=== PATIENT | female | born 1940 | race Caucasian/White ===

== ENCOUNTER 2017-10-01 11:10 | Outpatient (CLI) | payer MEDICARE | END 2017-10-01 11:11 | disposition home or self-care (01) | LOC: BICMAMMO 11:10 | PROVIDERS: ATTEND Family Medicine | DX: Z12.31 Encounter for screening mammogram for malignant neoplasm of breast; Z85.3 Personal history of malignant neoplasm of breast | CPT/HCPCS: 77063; 77067 ==

== ENCOUNTER 2018-10-13 11:04 | Outpatient (CLI) | payer MEDICARE, BC ==
--- NOTE | 2018-10-13 11:37 | MMO ---
Bilateral MAMMO Bilat Screen [facility]. CLINICAL HISTORY: Patient is 78 years old and is seen for screening. The patient has a history of left Mastectomy in 1988 - malignant. VIEWS: The views performed were: . FILMS COMPARED: The present examination has been compared to prior imaging studies performed at [facility] on 10/01/2017, and at [facility] on 05/30/2013, 06/09/2014, 06/14/2015 and 07/17/2016. MAMMOGRAM FINDINGS: The breast is heterogeneously dense, which could obscure a lesion on mammography. There are stable benign appearing calcifications seen in the right breast. There are no suspicious masses, suspicious calcifications, or new areas of architectural distortion. IMPRESSION: THERE IS NO MAMMOGRAPHIC EVIDENCE OF MALIGNANCY. A ROUTINE FOLLOW-UP MAMMOGRAM IN 1 YEAR IS RECOMMENDED. THE RESULTS OF THIS EXAM WERE SENT TO THE PATIENT. ACR BI-RADS Category 2 - Benign finding MAMMOGRAPHY NOTE: 1. A negative mammogram report should not delay a biopsy if a dominant of clinically suspicious mass is present. 2. Approximately 10% to 15% of breast cancers are not detected by mammography. 3. Adenosis and dense breasts may obscure an underlying neoplasm.
== END 2018-10-13 11:05 | disposition home or self-care (01) ==
LOC: BICMAMMO 11:04
PROVIDERS: ATTEND Family Medicine
DX: Z12.31 Encounter for screening mammogram for malignant neoplasm of breast (principal)
CPT/HCPCS: 77063; 77067

== ENCOUNTER 2019-08-18 17:33 | Inpatient (IN) | payer MEDICARE, BC ==
[2019-08-18 18:28] LABS: #Basophils 0.1 thou/uL (0.0-0.2); #Eosinphils 0.4 thou/uL (0.0-0.7); #Lymphocytes 3.1 thou/uL (1.20-3.40); #Monocytes 1.3 thou/uL (0.11-0.59); #Neutrophils 9.6 thou/uL (1.40-6.50); %Basophils 0.5 % (0.0-1.0); %Eosinophils 2.5 % (0.0-10.0); %Lymphocytes 21.2 % (21.0-51.0); %Neutrophils 66.8 % (42.0-75.0); Hemoglobin 11.2 g/dL (12.0-16.0); Mean Corpuscular HGB CONC 34.3 g/dL (32.0-36.0); Mean Corpuscular Hemoglobin 32.8 pg (27.0-31.0); Mean Corpuscular Volume 95.6 fL (78.0-98.0); Mean Platelet Volume 7.9 fL (7.4-10.4); Platelet Count 391 thou/uL (130-400); RBC Distribution Width 11.5 % (11.5-14.5); Red Blood Cell (RBC) Count 3.41 mill/uL (4.20-5.40); White Blood Cell (WBC) Count 14.4 thou/uL (4.8-10.8)
[2019-08-18 18:36] LABS: INR-International Normal Ratio 1.2; PTT 32.2 SEC (22.9-36.1); Prothrombin Time 14.9 SEC (12.0-14.7)
[2019-08-18] MEDS ORDERED: Diltiazem 125 MG/25 ML ONE (18:48)
[2019-08-18 18:53] LABS: ALT (SGPT) 41 U/L (8-55); AST (SGOT) 24 U/L (5-34); Albumin 4.2 g/dL (3.4-4.8); Alkaline Phosphatase 82 U/L (40-110); Anion Gap 13 mmol/L (10-20); BUN (Urea Nitrogen) 33 mg/dL (9.8-20.1); Bilirubin, Total 0.4 mg/dL (0.2-1.2); Calc. Creatinine Clearance 0 mL/min (70-130); Calcium 9.9 mg/dL (7.8-10.44); Carbon Dioxide 27 mmol/L (23-31); Chloride 102 mmol/L (98-107); Estimated GFR-MDRD 34; Glucose 103 mg/dL (83-110); Potassium 4.9 mmol/L (3.5-5.1); Protein, Total 7.2 g/dL (6.0-8.3); Sodium 137 mmol/L (136-145)
[2019-08-18 19:16] LABS: CKMB 1.7 ng/mL (0-6.6)
--- NOTE | 2019-08-18 19:34 | RAD ---
CHEST ONE VIEW: 08/18/19 HISTORY: Chest pain. COMPARISON: 09/22/16 study. Heart size is within normal limits for portable technique. Postop sternotomy changes are seen. Patien t's hand overlies the chest. No infiltrative process of signs of failure. Bones are demineralized. IMPRESSION: No active intrathoracic disease. POS: ROSENDO
[2019-08-18] MEDS ORDERED: Senokot S 8.6-50 MG TAB PO PRN (20:53)
[2019-08-18] MEDS ORDERED: Ondansetron PF 4 MG/2 ML Vial IVP PRN (20:53)
[2019-08-18] MEDS ORDERED: Sodium Chloride 0.9% 1,000 ML IV SCH (21:00)
--- NOTE | 2019-08-18 21:02 | PDOC.HHP ---
Hospitalist HPI - History of Present Illness Tachycardia History of Present Illness: 79 yo female who is a resident of an Assisted living facility was transferred to ER after she was found to have tachycardia. She has a history of CAD s/p CABG in 2017, HTN, A.Fib. She reports some discomfort in her left upper extremity. No CP, palpitations, cough, wheezing, SOB, PND or orthopnea. No fever , chills, N/V/D/C. No abdominal pain, burning or pain with urination. No headache, rash, bruising, leg swelling or recent travel history. ED Course: Found to have A.Flutter/Fib and given IV cardizem with rate reduction to 70s but HR went back up to 140s. Given IV fluids and given IV digoxin x 1. 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 Heme/Onc: reports: Cancer (Breast) Endocrine: reports: Hypothyroidism - Past Surgical History Past Surgical History: reports: CABG, Mastectomy - Family History Family History: reports: no pertinent history (reviewed) - Social History Smoking Status: Former smoker Tobacco Type: cigarettes Alcohol: reports: None Drugs: reports: none Living Situation: Other (Assisted Living Facility) Activity level: wheelchair bound - Exam General Appearance: NAD, awake alert Eye: PERRL, anicteric sclera ENT: normocephalic atraumatic, no oropharyngeal lesions, dry oral mucosa Neck: supple, symmetric, no JVD, no thyromegaly, no lymphadenopathy Heart: no murmur, no gallops, no rubs, normal peripheral pulses Heart - other findings: tachycardia present Respiratory: CTAB, no wheezes, no rales, no ronchi, normal chest expansion, no tachypnea, normal percussion Gastrointestinal: soft, non-tender, non-distended, normal bowel sounds, no palpable masses Extremities: no cyanosis, no clubbing, no edema Skin: normal turgor, no lesions, no rashes Neurological: cranial nerve grossly intact, normal sensation to touch, hemiplegia (Left UE contracture and weakness; LLE weakness). negative: speech deficit Musculoskeletal: normal strength (Right UE & LE 5/5), no muscle wasting (left UE & LE) Musculoskeletal - other findings: Intact strength left shoulder and hip only; Other joints with contractrues Psychiatric: normal affect, normal behavior, A&O x 3 Hospitalist Results - Labs Result Diagrams: 08/18/19 18:20 08/18/19 18:20 Lab results: WBC 14.4 thou/uL (4.8-10.8) H 08/18/19 18:20 Hgb 11.2 g/dL (12.0-16.0) L 08/18/19 18:20 Hct 32.6 % (36.0-47.0) L 08/18/19 18:20 MCV 95.6 fL (78.0-98.0) 08/18/19 18:20 Plt Count 391 thou/uL (130-400) 08/18/19 18:20 Neutrophils % 66.8 % (42.0-75.0) 08/18/19 18:20 Sodium 137 mmol/L (136-145) 08/18/19 18:20 Potassium 4.9 mmol/L (3.5-5.1) 08/18/19 18:20 Chloride 102 mmol/L (98-107) 08/18/19 18:20 Carbon Dioxide 27 mmol/L (23-31) 08/18/19 18:20 BUN 33 mg/dL (9.8-20.1) H 08/18/19 18:20 Creatinine 1.48 mg/dL (0.6-1.1) H 08/18/19 18:20 Glucose 103 mg/dL (83-110) 08/18/19 18:20 Calcium 9.9 mg/dL (7.8-10.44) 08/18/19 18:20 Total Bilirubin 0.4 mg/dL (0.2-1.2) 08/18/19 18:20 AST 24 U/L (5-34) 08/18/19 18:20 ALT 41 U/L (8-55) 08/18/19 18:20 Alkaline Phosphatase 82 U/L (40-110) 08/18/19 18:20 CK-MB (CK-2) 1.7 ng/mL (0-6.6) 08/18/19 18:20 Troponin I 0.038 ng/mL (< 0.028) H 08/18/19 18:20 B-Natriuretic Peptide 277.4 pg/mL (0-100) H 08/18/19 18:20 Serum Total Protein 7.2 g/dL (6.0-8.3) 08/18/19 18:20 Albumin 4.2 g/dL (3.4-4.8) 08/18/19 18:20 - EKG Interpretation EKG: Personally reviewed - A.Fib/Flutter with non-specific T-wave changes - Radiology Interpretation Chest x-ray Status: image reviewed by me (No consolidation or CP angle blunting; midline sternotomy wires) Hospitalist H&P A/P - Problem (1) Atrial fibrillation Code(s): I48.91 - UNSPECIFIED ATRIAL FIBRILLATION Status: Acute Qualifiers: Atrial fibrillation type: unspecified chronic Qualified Code(s): I48.20 - Chronic atrial fibrillation, unspecified; I48.2 - Chronic atrial fibrillation Assessment and Plan: Patient is asymptomatic and seems to have a history of Paroxysmal A.Fib Now in A.Fib/flutter with RVR Admit to telemetry to inpatient status Expected to stay at least 2 midnights High risk due to risk of lethal arrhythmias Borderline low BP and risk of hypotension with cardizem drip Pt given Digoxin IV 0.25 mg X 1 now Will repeat Digoxin 0.125 mg IV Q6H x 2 Resume coreg at increased dose of 6.25 PO BID Cardiology consult. Further management of AV blocking agents per cardiology ECHO ordered Patient on Eliquis at home. Resume the same. (2) Elevated troponin Code(s): R79.89 - OTHER SPECIFIED ABNORMAL FINDINGS OF BLOOD CHEMISTRY Status : Acute Assessment and Plan: Likely Demand Ischemia related to tachycardia and renal dysfunction Cycle cardiac enzymes Cardio consult and ECHO Continue statin, BB therapy ASA in addition to patient's eliquis therapy (3) MELE (acute kidney injury) Code(s): N17.9 - ACUTE KIDNEY FAILURE, UNSPECIFIED Status: Acute Assessment and Plan: MELE vs CKD Dehydrated on clinical exam IV fluids Will obtain renal US If concern for CKD, will consider nephrology consult Avoid nephrotoxic meds and hypotension Monitor urine output and renal function closely (4) CAD in [place] artery Code(s): I25.10 - ATHSCL HEART DISEASE OF [place] CORONARY ARTERY W/O ANG PCTRS Status: Chronic Assessment and Plan: Continue statin, BB Cardio consult s/p CABG in 2017 (5) Dyslipidemia Code(s): E78.5 - HYPERLIPIDEMIA, UNSPECIFIED Status: Chronic Assessment and Plan: Crestor 10 mg HS (6) Hypertension Code(s): I10 - ESSENTIAL (PRIMARY) HYPERTENSION Status: Chronic Qualifiers: Hypertension type: essential hypertension Qualified Code(s): I10 - Essential (primary) hypertension Assessment and Plan: Hold HTN meds due to risk of hypotension due to her A.Fib and her MELE which needs IV fluids Monitor BP and adjust regimen accordingly (7) Hypothyroidism Code(s): E03.9 - HYPOTHYROIDISM, UNSPECIFIED Status: Chronic Qualifiers: Hypothyroidism type: acquired Qualified Code(s): E03.9 - Hypothyroidism, unspecified Assessment and Plan: Check TSH Resume home dose of 25 mcg Synthroid (8) Hemiplegia, post-stroke Code(s): I69.359 - HEMIPLGA FOLLOWING CEREBRAL INFARCTION AFFECTING UNSP SIDE Status: Chronic Assessment and Plan: Supportive care Statin and Eliquis (9) History of coronary artery bypass graft x 3 Code(s): Z95.1 - PRESENCE OF AORTOCORONARY BYPASS GRAFT Status: Chronic - Plan Plan: CODE STATUS - FULL CODE Either of her daughters would be health care proxy
[2019-08-18] MEDS ORDERED: Melatonin 3 MG TAB PO PRN (21:14)
[2019-08-18] MEDS ORDERED: Digoxin 0.5 MG/2 ML AMP ONE (21:15)
[2019-08-18] MEDS ORDERED: Carvedilol 6.25 MG TAB PO SCH (21:30)
[2019-08-18] MEDS ORDERED: Apixaban 2.5 MG TAB PO SCH (21:30)
[2019-08-19] MEDS: Sodium Chloride 0.9% 1,000 ML IV SCH ×2 (00:15→14:22)
[2019-08-19] MEDS ORDERED: Amiodarone 150 MG/3 ML VIAL ONE (01:12)
[2019-08-19] MEDS ORDERED: Amiodarone 150 MG in Dextrose 5% in Water 100 ML IVPB SCH (01:15)
[2019-08-19] MEDS ORDERED: Amiodarone 450 MG in Dextrose 5% in Water 250 ML IVPB SCH (01:30)
[2019-08-19 01:55] LABS: Troponin I 0.037 ng/mL (< 0.028)
[2019-08-19] MEDS ORDERED: Digoxin 0.5 MG/2 ML AMP SLOW IVP SCH (03:00)
[2019-08-19 04:40] VITALS: BMI 25.3
[2019-08-19 05:02] LABS: #Basophils 0.1 thou/uL (0.0-0.2); #Eosinphils 0.2 thou/uL (0.0-0.7); #Monocytes 0.8 thou/uL (0.11-0.59); #Neutrophils 6.8 thou/uL (1.40-6.50); %Basophils 0.7 % (0.0-1.0); %Eosinophils 1.8 % (0.0-10.0); %Lymphocytes 20.3 % (21.0-51.0); %Monocytes 8.5 % (0.0-10.0); %Neutrophils 68.7 % (42.0-75.0); Hemoglobin 9.3 g/dL (12.0-16.0); Mean Corpuscular HGB CONC 33.3 g/dL (32.0-36.0); Mean Corpuscular Hemoglobin 32.4 pg (27.0-31.0); Mean Corpuscular Volume 97.4 fL (78.0-98.0); Platelet Count 307 thou/uL (130-400); RBC Distribution Width 11.6 % (11.5-14.5); Red Blood Cell (RBC) Count 2.88 mill/uL (4.20-5.40); White Blood Cell (WBC) Count 9.8 thou/uL (4.8-10.8)
[2019-08-19 05:31] LABS: ALT (SGPT) 34 U/L (8-55); AST (SGOT) 25 U/L (5-34); Albumin 3.2 g/dL (3.4-4.8); Alkaline Phosphatase 61 U/L (40-110); Anion Gap 9 mmol/L (10-20); BUN (Urea Nitrogen) 23 mg/dL (9.8-20.1); Bilirubin, Total 0.3 mg/dL (0.2-1.2); Calc. Creatinine Clearance 41 mL/min (70-130); Calcium 8.2 mg/dL (7.8-10.44); Carbon Dioxide 21 mmol/L (23-31); Chloride 111 mmol/L (98-107); Estimated GFR-MDRD 54; Globulin 2.4 g/dL (2.4-3.5); Glucose 96 mg/dL (83-110); Potassium 4.8 mmol/L (3.5-5.1); Protein, Total 5.6 g/dL (6.0-8.3); Sodium 136 mmol/L (136-145)
[2019-08-19 06:51] LABS: Troponin I 0.044 ng/mL (< 0.028)
[2019-08-19] MEDS: Levothyroxine Sodium 25 MCG TAB PO SCH (07:00)
[2019-08-19] MEDS ORDERED: Carvedilol 6.25 MG TAB PO SCH (08:00)
[2019-08-19] MEDS ORDERED: PROPOFOL 40 ML ONE (10:34)
[2019-08-19] MEDS ORDERED: PROPOFOL 200 MG/20 ML VIAL ONE (10:51)
--- NOTE | 2019-08-19 11:21 | CON ---
DATE OF CONSULTATION: HISTORY OF PRESENT ILLNESS: An 79-year-old woman, who presents for evaluation of rapid heart rate. The patient has a long history of coronary artery disease. She previously underwent coronary artery bypass graft surgery in 2017. She had a THOMPSON placed to the LAD, saphenous vein graft to RCA and OM. The patient also developed postop atrial flutter. She underwent electrocardioversion. The patient has been on chronic anticoagulation therapy. She was in her usual state of health when she developed sinus difficulties. She received steroids for several days. She started feeling weak and was noted to have a rapid heart rate. The patient denied having any chest discomfort. She denies having any chest discomfort or palpitations. PAST MEDICAL HISTORY: 1. Congestive heart failure. 2. Hypertension. 3. Atrial fibrillation. 4. History of CVA. 5. Atrial flutter. PAST SURGICAL HISTORY: 1. Coronary artery bypass surgery. 2. Breast surgery. SOCIAL HISTORY: Former smoker. ALLERGIES: NO KNOWN DRUG ALLERGIES. REVIEW OF SYSTEMS: Ten-point system otherwise unremarkable. MEDICATIONS: 1. Eliquis 2.5 b.i.d. 2. Spironolactone 25 daily. 3. Ramipril 5 b.i.d. 4. Imdur 30 q.a.m. 5. Lasix 40 daily. 6. Coreg 6.25 b.i.d. 7. Crestor 10 at bedtime. PHYSICAL EXAMINATION: GENERAL: Well-developed woman, in no acute distress. VITAL SIGNS: Blood pressure was 142/65. NECK: No jugular venous distention. LUNGS: Clear to auscultation. HEART: Irregular rate and rhythm. Normal S1 and S2. ABDOMEN: Nondistended. EXTREMITIES: Show no edema. LABORATORY RESULTS: Sodium 136, potassium 4.8, chloride 111, bicarb 21, BUN 23, creatinine 0.99, and glucose is 96. Troponin was 0.044. BNP is 274. White blood cell count 9.8, hemoglobin 9.3, hematocrit 28.1, and platelets were 307. EKG atrial flutter with a variable response. IMPRESSION AND PLAN: 1. Recurrent atrial flutter. 2. History of coronary artery bypass surgery. 3. Hypertension. 4. Dyslipidemia. This patient presents with recurrent atrial flutter. The patient is on IV amiodarone. We will consider repeat electrocardioversion. We will follow this patient with you through her hospitalization. Job ID: [id number] [email or web address]
[2019-08-19] MEDS: Apixaban 2.5 MG TAB PO SCH ×2 (12:23→21:37)
[2019-08-19] MEDS: Fluticasone Propionate Nasal Spray 16 gm Bottle NASAL SCH (12:23)
[2019-08-19] MEDS ORDERED: Isosorbide Mononitrate (ER) 30 MG TAB PO SCH ×2 (13:57→14:15)
[2019-08-19] MEDS ORDERED: hydrALAZINE 20 MG/ML VIAL SLOW IVP PRN (13:57)
[2019-08-19] MEDS ORDERED: Ramipril 5 MG CAP PO SCH ×2 (13:57→14:15)
--- NOTE | 2019-08-19 15:12 | OP ---
DATE OF PROCEDURE: 08/19/2019 PROCEDURE PERFORMED: Transesophageal echocardiogram. INDICATIONS: An 79-year-old woman with atypical atrial flutter. DESCRIPTION OF PROCEDURE: The patient was taken to the PACU. The patient was sedated by Anesthesiology. A transesophageal probe was placed into the distal esophagus and stomach. Echocardiographic images were obtained. The transesophageal probe was removed. FINDINGS: 1. Normal left ventricular systolic function. 2. Left atrial enlargement. 3. Mild mitral regurgitation. 4. Mild tricuspid regurgitation. 5. The left atrial appendage was sutured with a small less than 1-mm leak noted. 6. Atherosclerotic debris in the descending aorta. IMPRESSION: Small less than 1-mm leak noted in the sutured left atrial appendage. Job ID: [id number]
--- NOTE | 2019-08-19 15:14 | OP ---
DATE OF PROCEDURE: 08/19/2019 PROCEDURE PERFORMED: Electrocardioversion. INDICATIONS: This is an 79-year-old woman with atrial fibrillation. DESCRIPTION OF PROCEDURE: The patient was taken to the PACU. The patient was sedated by Anesthesiology. The patient was shocked with 50 joules of synchronized electricity. The patient converted to normal sinus rhythm. IMPRESSION: Successful electrocardioversion. Job ID: [id number]
[2019-08-19] MEDS ORDERED: Guaifenesin DM 100-10/5 ML UDCUP PO PRN (16:14)
[2019-08-19] MEDS: Dronedarone HCl 400 MG TAB PO SCH (16:34)
[2019-08-19] MEDS: Acetaminophen 325 MG TAB PO PRN (16:34)
[2019-08-19] MEDS ORDERED: Rosuvastatin 10 MG TAB PO SCH (21:00)
[2019-08-19] MEDS: Ramipril 5 MG CAP PO SCH (21:34)
[2019-08-20] MEDS: Levothyroxine Sodium 25 MCG TAB PO SCH (06:10)
[2019-08-20] MEDS: Fluticasone Propionate Nasal Spray 16 gm Bottle NASAL SCH (08:52)
[2019-08-20] MEDS: Ramipril 5 MG CAP PO SCH (08:53)
[2019-08-20] MEDS: Dronedarone HCl 400 MG TAB PO SCH (08:53)
[2019-08-20] MEDS: Apixaban 2.5 MG TAB PO SCH (08:53)
[2019-08-20] MEDS: Acetaminophen 325 MG TAB PO PRN (08:54)
[2019-08-20] MEDS ORDERED: Isosorbide Mononitrate (ER) 30 MG TAB PO SCH ×3 (09:00→09:15)
[2019-08-20] MEDS ORDERED: Spironolactone 25 MG TAB PO SCH (09:15)
--- NOTE | 2019-08-20 09:46 | PDOC.HOSPP ---
- Subjective Encounter Date: 08/19/19 Encounter Time: 15:00 Subjective: pt up in bed no complains - Objective Vital Signs & Weight: Vital Signs (12 hours) Temp Pulse Resp BP BP Pulse Ox 08/20/19 08:53 184/81 H 08/20/19 08:00 99.6 F 74 24 H 186/81 H 92 L 08/20/19 04:00 98.8 F 72 18 132/58 L 94 L Weight Weight 129 lb 14.4 oz I&O: 08/19/19 08/20/19 08/21/19 06:59 06:59 06:59 Intake Total 200 300 Output Total 1000 Balance -800 300 Result Diagrams: 08/19/19 04:46 08/19/19 04:46 Hospitalist ROS - Review of Systems Cardiovascular: denies: chest pain, palpitations, orthopnea, paroxysmal noc. dyspnea, edema, light headedness, other Gastrointestinal: denies: nausea, vomiting, abdominal pain, diarrhea, constipation, melena, hematochezia, other Genitourinary: denies: dysuria, frequency, incontinence, hematuria, retention, other - Medication Medications: Active Medications Generic Name Dose Route Start Last Admin Trade Name Freq PRN Reason Stop Dose Admin Acetaminophen 650 mg 08/18/19 20:53 08/20/19 08:54 Tylenol PO 650 mg Q4H PRN Administration Headache/Fever/Mild Pain (1-3) Apixaban 2.5 mg 08/19/19 09:00 08/20/19 08:53 Eliquis PO 2.5 mg BID BRITT Administration Dronedarone 400 mg 08/19/19 17:00 08/20/19 08:53 Multaq PO 400 mg BID-WM BRITT Administration Fluticasone Propionate 0 gm 08/19/19 09:00 08/20/19 08:52 Flonase Nasal [place] NASAL 1 spr DAILY BRITT Administration Levothyroxine Sodium 25 mcg 08/19/19 06:00 08/20/19 06:10 Synthroid PO 25 mcg 0600 BRITT Administration Ramipril 5 mg 08/19/19 21:00 08/20/19 08:53 Altace PO 5 mg BID BRITT Administration Rosuvastatin Calcium 10 mg 08/19/19 21:00 08/19/19 21:37 Crestor PO 10 mg HS BRITT Administration Sodium Chloride 10 ml 08/19/19 09:00 08/20/19 08:54 Flush - Normal Saline IVF 10 ml Q12HR BRITT Administration - Exam Neck: negative: supple, symmetric, no JVD, no thyromegaly, no lymphadenopathy, no carotid bruit, JVD Heart: negative: RRR, no murmur, no gallops, no rubs, normal peripheral pulses, irregular, diminshed peripheral pulses, murmur present, II/IV, III/IV Respiratory: negative: CTAB, no wheezes, no rales, no ronchi, normal chest expansion, no tachypnea, normal percussion, rales, rhonchi, tachypneic, wheezes Gastrointestinal: negative: soft, non-tender, non-distended, normal bowel sounds , no palpable masses, no hepatomegaly, no splenomegaly, no bruit, no guarding, no rigidity, tender to palpation, distended, diminished bowl sounds, voluntary guarding Extremities - other findings: left upper ext contracted Hosp A/P (1) Atrial fib/flutter, transient Code(s): UCT3805 - Status: Acute (2) MELE (acute kidney injury) Code(s): N17.9 - ACUTE KIDNEY FAILURE, UNSPECIFIED Status: Acute (3) Elevated troponin Code(s): R79.89 - OTHER SPECIFIED ABNORMAL FINDINGS OF BLOOD CHEMISTRY Status : Acute - Plan s/p cardioversion doing well. will continue joey meds for now.
[2019-08-20 11:42] VITALS: BP 117/68; TEMP 98.8
--- NOTE | 2019-08-21 01:06 | DIS ---
DATE OF ADMISSION: 08/18/2019 DATE OF DISCHARGE: 08/20/2019 DISCHARGE DIAGNOSES: As of the following. 1. Atrial fibrillation with rapid ventricular response. 2. Elevated troponins. 3. Acute kidney injury. 4. Coronary artery disease. 5. Hypothyroidism. 6. Chronic stroke. 7. Hypertension. HOSPITAL COURSE: The patient is an 79-year-old female, who lives in the [place], who presented to the hospital and she was found to be in tachycardia and AFib. At this time, she was admitted into the hospital and was started initially on Cardizem and then also was given digoxin due to uncontrolled heart rate. She was seen by Cardiology, underwent a cardioversion, which was done on 08/19. She was on Eliquis. She had 1 shock of 50 joules and she was converted back to sinus rhythm. She did really well. She was watched overnight and Cardiology has recommended for discharge with certain medication reconciliation. MEDICATIONS: Her home medications will be, 1. Multaq which is new 400 mg twice a day. 2. Isosorbide 60 mg daily. 3. Eliquis 2.5 twice a day. 4. She is on ramipril 5 mg twice a day. 5. Rosuvastatin 10 mg at bedtime. 6. Spironolactone 25 mg daily. PHYSICAL EXAMINATION: VITAL SIGNS: Temperature of 99.6, 74, 18, 94% on room air. She is 132/58. GENERAL: She is awake, alert, and oriented x3. Does not appear in distress. CV: S1, S2 present. No murmurs, rubs, or gallops. Again, she will be discharged home. She will follow up with her primary and also Cardiology. I have recommended to check a blood CBC on Thursday. Job ID: [id number]
[2019-08-21] MEDS ORDERED: Spironolactone 25 MG TAB PO SCH (08:00)
[2019-08-21] MEDS ORDERED: Isosorbide Mononitrate (ER) 30 MG TAB PO SCH (09:00)
== END 2019-08-20 16:18 | disposition home or self-care (01) | DRG 309 ==
LOC: ERS 17:33 → ERHOLD 20:33 → 2SE 21:05
PROVIDERS: ADMIT Internal Medicine Sleep Medicine; ATTEND Internal Medicine
PROC: B24BZZ4 Ultrasonography of Heart with Aorta, Transesophageal (ICD-10-PCS; principal; 2019-08-19)
PROC: 5A2204Z Restoration of Cardiac Rhythm, Single (ICD-10-PCS; 2019-08-19)
DX: I48.0 Paroxysmal atrial fibrillation (principal); N17.9 Acute kidney failure, unspecified; I25.10 Atherosclerotic heart disease of native coronary artery without angina pectoris; I11.0 Hypertensive heart disease with heart failure; I50.9 Heart failure, unspecified; E78.5 Hyperlipidemia, unspecified; E03.9 Hypothyroidism, unspecified; E86.0 Dehydration; I48.4 Atypical atrial flutter; I08.1 Rheumatic disorders of both mitral and tricuspid valves; R79.89 Other specified abnormal findings of blood chemistry; I69.954 Hemiplegia and hemiparesis following unspecified cerebrovascular disease affecting left non-dominant side; Z95.1 Presence of aortocoronary bypass graft; Z85.3 Personal history of malignant neoplasm of breast; I25.2 Old myocardial infarction; Z90.12 Acquired absence of left breast and nipple; Z79.01 Long term (current) use of anticoagulants; Z79.899 Other long term (current) drug therapy; Z87.891 Personal history of nicotine dependence
CPT/HCPCS: 36415; 71045; 80053; 82553; 83880; 84443; 84484; 85025; 85610; 85730; 92960; 93005; 93010; 93312; 96361; 96374; 96375; J0282; J1160; J2704; J7070

== ENCOUNTER 2020-08-02 08:22 | Outpatient (CLI) | payer MEDICARE, BC ==
--- NOTE | 2020-08-02 09:56 | ULT ---
LIMITED LEFT BREAST ULTRASOUND: Date: 08/02/2020 HISTORY: 80-year-old female status post left mastectomy. Probable mass at mastectomy site. FINDINGS/IMPRESSION: Sonographic evaluation in the region of palpable concern just superior to the mastectomy site demonst rates no abnormality. POS: OFF
== END 2020-08-02 08:23 | disposition home or self-care (01) ==
LOC: BICULT 08:22
PROVIDERS: ATTEND Nurse Practitioner Family
DX: R22.2 Localized swelling, mass and lump, trunk (principal)

== ENCOUNTER 2020-09-27 15:54 | Outpatient (CLI) | payer MEDICARE, BC ==
[2020-09-27 19:39] LABS: #Basophils 0.1 10x3/uL (0.0-0.2); #Eosinphils 0.1 10x3/uL (0.0-0.5); #Monocytes 0.9 10x3/uL (0.0-1.1); %Basophils 0.6 % (0.0-2.0); %Eosinophils 0.7 % (0.0-6.0); %Neutrophils 72.9 % (40.0-75.0); Anion Gap 17 mmol/L (10-20); BUN (Urea Nitrogen) 20 mg/dL (9.8-20.1); Calc. Creatinine Clearance 0 mL/min (70-130); Calcium 9.5 mg/dL (7.8-10.44); Carbon Dioxide 26 mmol/L (23-31); Chloride 99 mmol/L (98-107); Glucose 94 mg/dL (83-110); Hemoglobin 11.9 g/dL (12.0-15.5); Mean Corpuscular HGB CONC 32.2 g/dL (32.0-36.0); Mean Corpuscular Hemoglobin 29.6 pg (27.0-33.0); Mean Corpuscular Volume 91.8 fl (81.6-98.3); Mean Platelet Volume 10.8 fl (7.4-10.4); Platelet Count 458 10x3/uL (150-450); Potassium 4.9 mmol/L (3.5-5.1); RBC Distribution Width 12.7 % (11.5-14.5); Red Blood Cell (RBC) Count 4.02 10x6/uL (3.90-5.03); Sodium 137 mmol/L (136-145); White Blood Cell (WBC) Count 12.4 10x3/uL (3.5-10.5)
[2020-09-27 19:56] LABS: Prothrombin Time 10.7 sec (9.5-12.1)
[2020-09-28 02:10] LABS: SARS-CoV-2 PCR by NAA Not Detected (NotDetected)
== END 2020-09-27 15:55 | disposition home or self-care (01) ==
LOC: LABBT 15:54
PROVIDERS: ATTEND Internal Medicine Cardiovascular Disease
DX: Z01.812 Encounter for preprocedural laboratory examination (principal); I48.91 Unspecified atrial fibrillation; Z20.822 Contact with and (suspected) exposure to COVID-19
CPT/HCPCS: 80048; 85025; 85610; 85730; U0003; U0005; 87635

== ENCOUNTER 2020-10-02 11:49 | Day surgery (SDC) | payer MEDICARE, BC ==
[2020-10-01 11:51] VITALS: BMI 24.4
[2020-10-02] MEDS ORDERED: PROPOFOL 200 MG/20 ML VIAL ONE (13:04)
== END 2020-10-02 14:40 | disposition home or self-care (01) ==
LOC: CCL 11:49
PROVIDERS: ATTEND Internal Medicine Cardiovascular Disease
DX: I48.3 Typical atrial flutter (principal); I48.0 Paroxysmal atrial fibrillation; I08.3 Combined rheumatic disorders of mitral, aortic and tricuspid valves; I25.5 Ischemic cardiomyopathy; I25.10 Atherosclerotic heart disease of native coronary artery without angina pectoris; I11.0 Hypertensive heart disease with heart failure; I50.9 Heart failure, unspecified; E78.00 Pure hypercholesterolemia, unspecified; E78.2 Mixed hyperlipidemia; Z79.01 Long term (current) use of anticoagulants; Z79.899 Other long term (current) drug therapy; Z95.1 Presence of aortocoronary bypass graft
CPT/HCPCS: 92960; 93005; 93010; 93312; J2704

== ENCOUNTER 2020-12-19 09:01 | Emergency (ER) | payer MEDICARE, BC ==
[2020-12-19 09:50] LABS: #Eosinphils 0.1 thou/uL (0.0-0.7); #Lymphocytes 1.6 thou/uL (1.20-3.40); #Monocytes 1.1 thou/uL (0.11-0.59); %Basophils 0.1 % (0.0-1.0); %Eosinophils 1.6 % (0.0-10.0); %Lymphocytes 18.4 % (21.0-51.0); %Monocytes 12.6 % (0.0-10.0); %Neutrophils 67.3 % (42.0-75.0); Hemoglobin 10.2 g/dL (12.0-16.0); Mean Corpuscular HGB CONC 33.4 g/dL (32.0-36.0); Mean Corpuscular Hemoglobin 30.5 pg (27.0-31.0); Mean Corpuscular Volume 91.5 fL (78.0-98.0); Mean Platelet Volume 7.5 fL (7.4-10.4); Platelet Count 336 thou/uL (130-400); RBC Distribution Width 12.2 % (11.5-14.5); Red Blood Cell (RBC) Count 3.35 mill/uL (4.20-5.40); White Blood Cell (WBC) Count 8.9 thou/uL (4.8-10.8)
[2020-12-19 10:02] LABS: ALT (SGPT) 17 U/L (8-55); AST (SGOT) 22 U/L (5-34); Albumin 3.8 g/dL (3.4-4.8); Alkaline Phosphatase 77 U/L (40-110); Anion Gap 13 mmol/L (10-20); BUN (Urea Nitrogen) 23 mg/dL (9.8-20.1); Bilirubin, Total 0.5 mg/dL (0.2-1.2); Calc. Creatinine Clearance 0 mL/min (70-130); Calcium 9.5 mg/dL (7.8-10.44); Carbon Dioxide 27 mmol/L (23-31); Chloride 97 mmol/L (98-107); Globulin 3.2 g/dL (2.4-3.5); Glucose 141 mg/dL (83-110); Potassium 4.5 mmol/L (3.5-5.1); Sodium 132 mmol/L (136-145)
[2020-12-19] MEDS ORDERED: Famotidine 20 MG TAB ONE ×2 (10:07→10:10)
[2020-12-19] MEDS ORDERED: Furosemide 40 MG/4 ML VIAL ONE (10:19)
[2020-12-19] MEDS ORDERED: Acetaminophen 500 MG TAB ONE (10:42)
== END 2020-12-19 12:16 | disposition home or self-care (01) ==
LOC: ERS 09:01
DX: R60.0 Localized edema (principal); E78.5 Hyperlipidemia, unspecified; E78.00 Pure hypercholesterolemia, unspecified; I25.2 Old myocardial infarction; I48.91 Unspecified atrial fibrillation; Z86.73 Personal history of transient ischemic attack (TIA), and cerebral infarction without residual deficits; I10 Essential (primary) hypertension; Z79.899 Other long term (current) drug therapy; Z79.01 Long term (current) use of anticoagulants
CPT/HCPCS: 71045; 80053; 83880; 84484; 85025; 93005; 96374; J1940

== ENCOUNTER 2021-03-19 13:23 | Outpatient (CLI) | payer MEDICARE, BC | END 2021-03-19 13:24 | disposition home or self-care (01) | LOC: BICMAMMO 13:23 | PROVIDERS: ATTEND Nurse Practitioner Family | DX: Z12.31 Encounter for screening mammogram for malignant neoplasm of breast (principal); Z85.3 Personal history of malignant neoplasm of breast; Z90.12 Acquired absence of left breast and nipple | CPT/HCPCS: 77063; 77067 ==

== ENCOUNTER 2021-05-05 16:10 | Inpatient (IN) | payer MEDICARE, BC ==
[2021-05-05 17:33] LABS: #Basophils 0.1 thou/uL (0.0-0.2); #Eosinphils 0.3 thou/uL (0.0-0.7); #Lymphocytes 1.9 thou/uL (1.20-3.40); #Monocytes 1.4 thou/uL (0.11-0.59); #Neutrophils 9.2 thou/uL (1.40-6.50); %Basophils 0.6 % (0.0-1.0); %Lymphocytes 15.1 % (21.0-51.0); %Monocytes 10.8 % (0.0-10.0); %Neutrophils 71.5 % (42.0-75.0); Hemoglobin 10.2 g/dL (12.0-16.0); Mean Corpuscular HGB CONC 33.2 g/dL (32.0-36.0); Mean Corpuscular Hemoglobin 30.7 pg (27.0-31.0); Mean Corpuscular Volume 92.6 fL (78.0-98.0); Mean Platelet Volume 7.8 fL (7.4-10.4); Platelet Count 444 thou/uL (130-400); RBC Distribution Width 13.2 % (11.5-14.5); Red Blood Cell (RBC) Count 3.31 mill/uL (4.20-5.40); White Blood Cell (WBC) Count 12.9 thou/uL (4.8-10.8)
[2021-05-05 17:57] LABS: ALT (SGPT) 19 U/L (8-55); AST (SGOT) 25 U/L (5-34); Alkaline Phosphatase 83 U/L (40-110); Anion Gap 15 mmol/L (10-20); BUN (Urea Nitrogen) 37 mg/dL (9.8-20.1); Bilirubin, Total 0.3 mg/dL (0.2-1.2); CK (CPK) 95 U/L (29-168); Calc. Creatinine Clearance 0 mL/min (70-130); Calcium 9.8 mg/dL (7.8-10.44); Carbon Dioxide 28 mmol/L (23-31); Chloride 96 mmol/L (98-107); Globulin 3.9 g/dL (2.4-3.5); Glucose 110 mg/dL (83-110); Magnesium 2.8 mg/dL (1.6-2.6); Protein, Total 7.9 g/dL (5.8-8.1); Sodium 134 mmol/L (136-145)
[2021-05-05] MEDS ORDERED: Acetaminophen 500 MG TAB ONE (19:07)
[2021-05-05 20:16] LABS: Bacteria/HPF 1+ HPF (None Seen); Bilirubin Negative (Negative); Blood, Urine Negative (Negative); Clarity Clear (Clear); Glucose, Urine (Dipstick) Normal (Negative); Ketone, Urine Negative (Negative); Leukocyte 250 Leu/uL (Negative); Nitrite Negative (Negative); Protein, Urine (Dipstick) 50 mg/dL (Neg-Trace); RBC/HPF 0-3 HPF (0-3); Specific Gravity, Urine 1.022 (1.002-1.036); Squamous Epithelial 0-3 HPF (0-3); Urobilinogen Normal mg/dL (Less than 2)
[2021-05-05] MEDS ORDERED: Lidocaine 5% Patch TD SCH (20:45)
[2021-05-05] MEDS ORDERED: cefTRIAXone\\ROCEPHIN 2 GM VIAL ONE (21:16)
[2021-05-05] MEDS ORDERED: Acetaminophen 325 MG TAB PO PRN (23:33)
[2021-05-05] MEDS ORDERED: Ondansetron ODT 4 MG TAB PO PRN (23:33)
[2021-05-05] MEDS ORDERED: Ondansetron PF 4 MG/2 ML Vial IVP PRN (23:33)
[2021-05-05] MEDS ORDERED: Acetaminophen 650 MG Suppository PR PRN (23:33)
[2021-05-05] MEDS ORDERED: Furosemide 40 MG/4 ML VIAL SLOW IVP SCH (23:45)
[2021-05-06 06:12] LABS: #Basophils 0.1 thou/uL (0.0-0.2); #Eosinphils 0.2 thou/uL (0.0-0.7); #Lymphocytes 1.8 thou/uL (1.20-3.40); #Neutrophils 6.5 thou/uL (1.40-6.50); %Basophils 0.5 % (0.0-1.0); %Eosinophils 2.4 % (0.0-10.0); %Lymphocytes 18.7 % (21.0-51.0); %Monocytes 10.7 % (0.0-10.0); %Neutrophils 67.6 % (42.0-75.0); Hemoglobin 9.3 g/dL (12.0-16.0); Mean Corpuscular HGB CONC 33.2 g/dL (32.0-36.0); Mean Corpuscular Hemoglobin 30.8 pg (27.0-31.0); Mean Corpuscular Volume 92.9 fL (78.0-98.0); Mean Platelet Volume 7.9 fL (7.4-10.4); Platelet Count 348 thou/uL (130-400); Red Blood Cell (RBC) Count 3.01 mill/uL (4.20-5.40); White Blood Cell (WBC) Count 9.6 thou/uL (4.8-10.8)
[2021-05-06 06:36] LABS: Anion Gap 13 mmol/L (10-20); BUN (Urea Nitrogen) 34 mg/dL (9.8-20.1); Calc. Creatinine Clearance 22 mL/min (70-130); Calcium 8.9 mg/dL (7.8-10.44); Carbon Dioxide 28 mmol/L (23-31); Chloride 100 mmol/L (98-107); Glucose 88 mg/dL (83-110); Potassium 4.1 mmol/L (3.5-5.1); Sodium 137 mmol/L (136-145)
[2021-05-06] MEDS ORDERED: Enoxaparin Sodium 30 MG/0.3 ML SYRINGE SC SCH (09:00)
[2021-05-06] MEDS: Furosemide 40 MG/4 ML VIAL SLOW IVP SCH (09:18)
[2021-05-06] MEDS ORDERED: Transdermal Patch Removal TOP SCH (10:00)
[2021-05-06 12:28] LABS: SARS-CoV-2 PCR by NAA Not Detected (NotDetected)
[2021-05-06 13:18] LABS: Creatinine, Urine 21.28 mg/dL (47-110); Protein, Urine Random Quant Less than 10 mg/dL (1-14)
[2021-05-06] MEDS: Apixaban 2.5 MG TAB PO SCH (20:48)
[2021-05-06] MEDS ORDERED: Acetaminophen 325 MG TAB PO SCH (21:00)
[2021-05-06] MEDS ORDERED: Carvedilol 3.125 MG TAB PO SCH (21:00)
[2021-05-06] MEDS ORDERED: cefTRIAXone\\ROCEPHIN 1 GM in Sodium Chloride 0.9% 100 ML IVPB SCH (21:00)
[2021-05-06] MEDS ORDERED: Polyethylene Glycol 3350 17 GM Packet PO SCH (21:00)
[2021-05-06] MEDS ORDERED: Melatonin 3 MG TAB PO SCH (21:00)
[2021-05-06] MEDS ORDERED: Rosuvastatin 10 MG TAB PO SCH (21:00)
[2021-05-07 05:33] VITALS: BMI 24.7
[2021-05-07] MEDS ORDERED: Levothyroxine Sodium 25 MCG TAB PO SCH (06:00)
[2021-05-07 06:53] LABS: #Basophils 0.1 thou/uL (0.0-0.2); #Eosinphils 0.2 thou/uL (0.0-0.7); #Monocytes 0.9 thou/uL (0.11-0.59); #Neutrophils 6.6 thou/uL (1.40-6.50); %Basophils 0.7 % (0.0-1.0); %Eosinophils 2.2 % (0.0-10.0); %Lymphocytes 20.2 % (21.0-51.0); %Monocytes 9.4 % (0.0-10.0); %Neutrophils 67.5 % (42.0-75.0); Hemoglobin 10.6 g/dL (12.0-16.0); Mean Corpuscular HGB CONC 32.8 g/dL (32.0-36.0); Mean Corpuscular Hemoglobin 30.6 pg (27.0-31.0); Mean Corpuscular Volume 93.1 fL (78.0-98.0); Mean Platelet Volume 7.4 fL (7.4-10.4); Platelet Count 375 thou/uL (130-400); RBC Distribution Width 13.1 % (11.5-14.5); Red Blood Cell (RBC) Count 3.47 mill/uL (4.20-5.40); White Blood Cell (WBC) Count 9.7 thou/uL (4.8-10.8)
[2021-05-07 07:18] LABS: Anion Gap 12 mmol/L (10-20); BUN (Urea Nitrogen) 32 mg/dL (9.8-20.1); Calc. Creatinine Clearance 22 mL/min (70-130); Calcium 9.4 mg/dL (7.8-10.44); Carbon Dioxide 29 mmol/L (23-31); Chloride 99 mmol/L (98-107); Glucose 91 mg/dL (83-110); Magnesium 2.4 mg/dL (1.6-2.6); Phosphorus 4.1 mg/dL (2.3-4.7); Potassium 4.3 mmol/L (3.5-5.1); Sodium 136 mmol/L (136-145)
[2021-05-07 08:02] VITALS: BP 136/62; TEMP 98.1
[2021-05-07] MEDS: Furosemide 40 MG/4 ML VIAL SLOW IVP SCH (08:12)
[2021-05-07] MEDS: Apixaban 2.5 MG TAB PO SCH (08:12)
[2021-05-07] MEDS ORDERED: Multivit, Therapeutic 1 TAB PO SCH (09:00)
[2021-05-07] MEDS ORDERED: Docusate 100 MG CAP PO SCH (09:00)
[2021-05-08 16:37] LABS: Kappa Lambda Light Chain Ratio 2.48 (0.26-1.65); Kappa Light Chains 118.5 mg/L (3.3-19.4); Lambda Light Chain 47.8 mg/L (5.7-26.3)
== END 2021-05-07 17:37 | disposition home or self-care (01) | DRG 291 ==
LOC: ERS 16:10 → T4-B 21:26
PROVIDERS: ADMIT Student in an Organized Health Care Education/Training Program; ATTEND Internal Medicine
DX: I13.0 Hypertensive heart and chronic kidney disease with heart failure and stage 1 through stage 4 chronic kidney disease, or unspecified chronic kidney disease (principal); I50.43 Acute on chronic combined systolic (congestive) and diastolic (congestive) heart failure; N17.9 Acute kidney failure, unspecified; I69.354 Hemiplegia and hemiparesis following cerebral infarction affecting left non-dominant side; N18.4 Chronic kidney disease, stage 4 (severe); E87.1 Hypo-osmolality and hyponatremia; E78.00 Pure hypercholesterolemia, unspecified; E78.5 Hyperlipidemia, unspecified; I48.0 Paroxysmal atrial fibrillation; Z20.822 Contact with and (suspected) exposure to COVID-19; D72.829 Elevated white blood cell count, unspecified; D53.9 Nutritional anemia, unspecified; E03.9 Hypothyroidism, unspecified; I25.10 Atherosclerotic heart disease of native coronary artery without angina pectoris; I25.2 Old myocardial infarction; Z95.1 Presence of aortocoronary bypass graft; Z90.12 Acquired absence of left breast and nipple; Z79.899 Other long term (current) drug therapy; Z87.891 Personal history of nicotine dependence; Z79.01 Long term (current) use of anticoagulants
CPT/HCPCS: 36415; 71045; 74176; 80048; 80053; 81003; 81015; 82550; 82570; 83735; 83880; 83883; 84100; 84156; 84443; 84484; 85025; 87086; 90471; 90732; 93005; 93970; 96365; 97139; G0009; J0696; J1650; J1940; J3490; U0003; U0005

== ENCOUNTER 2021-05-17 14:22 | Inpatient (IN) | payer MEDICARE, BC ==
[2021-05-17 15:37] LABS: #Basophils 0.1 thou/uL (0.0-0.2); #Eosinphils 0.2 thou/uL (0.0-0.7); #Lymphocytes 2.2 thou/uL (1.20-3.40); #Monocytes 1.2 thou/uL (0.11-0.59); #Neutrophils 7.4 thou/uL (1.40-6.50); %Basophils 0.7 % (0.0-1.0); %Eosinophils 2.2 % (0.0-10.0); %Lymphocytes 19.7 % (21.0-51.0); %Monocytes 10.6 % (0.0-10.0); %Neutrophils 66.8 % (42.0-75.0); Hemoglobin 9.6 g/dL (12.0-16.0); Mean Corpuscular HGB CONC 34.2 g/dL (32.0-36.0); Mean Corpuscular Hemoglobin 31.2 pg (27.0-31.0); Mean Corpuscular Volume 91.4 fL (78.0-98.0); Mean Platelet Volume 7.5 fL (7.4-10.4); Platelet Count 439 thou/uL (130-400); RBC Distribution Width 12.7 % (11.5-14.5); Red Blood Cell (RBC) Count 3.08 mill/uL (4.20-5.40); White Blood Cell (WBC) Count 11.1 thou/uL (4.8-10.8)
[2021-05-17 16:09] LABS: ALT (SGPT) 18 U/L (8-55); AST (SGOT) 29 U/L (5-34); Albumin 3.7 g/dL (3.4-4.8); Alkaline Phosphatase 82 U/L (40-110); Anion Gap 16 mmol/L (10-20); BUN (Urea Nitrogen) 41 mg/dL (9.8-20.1); Bilirubin, Total 0.3 mg/dL (0.2-1.2); Calc. Creatinine Clearance 0 mL/min (70-130); Calcium 9.4 mg/dL (7.8-10.44); Carbon Dioxide 32 mmol/L (23-31); Chloride 95 mmol/L (98-107); Globulin 3.1 g/dL (2.4-3.5); Glucose 150 mg/dL (83-110); Magnesium 2.4 mg/dL (1.6-2.6); Potassium 4.1 mmol/L (3.5-5.1); Protein, Total 6.8 g/dL (5.8-8.1); Sodium 139 mmol/L (136-145)
[2021-05-17 16:24] LABS: Analyzer IN Cardio ER; Base Excess 7.2 mEq/L (-2.0 to +3.0); Chloride (VBG) 94 mmol/L (98-106); Hemoglobin (Hb) 10.2 g/dL (11.7-16.1); Potassium (VBG) 3.81 mmol/L (3.70-5.30); Sodium 135.4 mmol/L (133-146); pH (venous) 7.44 (7.32-7.43)
[2021-05-17 16:26] LABS: Actual Bicarbonate (HCO3v) 32 mEq/L (22-28)
[2021-05-17] MEDS ORDERED: Furosemide 40 MG/4 ML VIAL ONE (16:49)
[2021-05-17 18:36] VITALS: BMI 25.9
[2021-05-17] MEDS ORDERED: Ondansetron PF 4 MG/2 ML Vial IVP PRN (19:25)
[2021-05-17] MEDS: Acetaminophen 325 MG TAB PO PRN (22:28)
[2021-05-18 04:55] LABS: #Basophils 0.1 thou/uL (0.0-0.2); #Eosinphils 0.2 thou/uL (0.0-0.7); #Monocytes 1.1 thou/uL (0.11-0.59); #Neutrophils 5.9 thou/uL (1.40-6.50); %Basophils 0.6 % (0.0-1.0); %Eosinophils 2.5 % (0.0-10.0); %Lymphocytes 21.7 % (21.0-51.0); %Monocytes 11.7 % (0.0-10.0); %Neutrophils 63.6 % (42.0-75.0); Hemoglobin 9.3 g/dL (12.0-16.0); Mean Corpuscular HGB CONC 33.2 g/dL (32.0-36.0); Mean Corpuscular Hemoglobin 30.3 pg (27.0-31.0); Mean Corpuscular Volume 91.4 fL (78.0-98.0); Mean Platelet Volume 7.4 fL (7.4-10.4); Platelet Count 375 thou/uL (130-400); RBC Distribution Width 12.7 % (11.5-14.5); Red Blood Cell (RBC) Count 3.07 mill/uL (4.20-5.40); White Blood Cell (WBC) Count 9.3 thou/uL (4.8-10.8)
[2021-05-18] MEDS ORDERED: Ketotifen Fumarate 0.025% Ophth Soln 5 ml Bottle EA EYE PRN (05:17)
[2021-05-18 05:21] LABS: Anion Gap 13 mmol/L (10-20); BUN (Urea Nitrogen) 36 mg/dL (9.8-20.1); Calc. Creatinine Clearance 18 mL/min (70-130); Calcium 9.4 mg/dL (7.8-10.44); Carbon Dioxide 33 mmol/L (23-31); Chloride 96 mmol/L (98-107); Glucose 90 mg/dL (83-110); Potassium 3.4 mmol/L (3.5-5.1); Sodium 139 mmol/L (136-145)
[2021-05-18] MEDS: Levothyroxine Sodium 25 MCG TAB PO SCH (06:43)
[2021-05-18] MEDS ORDERED: Amlodipine 5 MG TAB PO SCH (09:00)
[2021-05-18] MEDS ORDERED: FLU VACC QS2021-22(65YR UP)/PF 240 MCG/0.7 ML SYRINGE IM ONE (09:00)
[2021-05-18] MEDS: Apixaban 2.5 MG TAB PO SCH ×2 (09:08→21:04)
[2021-05-18] MEDS: Dronedarone HCl 400 MG TAB PO SCH ×2 (09:08→16:29)
[2021-05-18] MEDS: Furosemide 40 MG/4 ML VIAL SLOW IVP SCH (09:35)
[2021-05-18] MEDS: Acetaminophen 325 MG TAB PO PRN ×2 (15:58→21:05)
[2021-05-18] MEDS ORDERED: Furosemide 20 MG/2 ML VIAL SLOW IVP SCH (16:00)
[2021-05-18 16:41] LABS: SARS-CoV-2 PCR by NAA Not Detected (NotDetected)
[2021-05-18] MEDS: Gabapentin 300 MG CAP PO SCH (21:03)
[2021-05-18] MEDS: Rosuvastatin 10 MG TAB PO SCH (21:05)
[2021-05-18] MEDS: Melatonin 3 MG TAB PO SCH (21:05)
[2021-05-19 04:20] LABS: #Eosinphils 0.3 thou/uL (0.0-0.7); #Lymphocytes 1.9 thou/uL (1.20-3.40); #Neutrophils 6.3 thou/uL (1.40-6.50); %Basophils 0.4 % (0.0-1.0); %Eosinophils 3.3 % (0.0-10.0); %Lymphocytes 19.7 % (21.0-51.0); %Monocytes 10.3 % (0.0-10.0); %Neutrophils 66.3 % (42.0-75.0); Hemoglobin 8.7 g/dL (12.0-16.0); Mean Corpuscular HGB CONC 33.7 g/dL (32.0-36.0); Mean Corpuscular Hemoglobin 30.9 pg (27.0-31.0); Mean Corpuscular Volume 91.7 fL (78.0-98.0); Mean Platelet Volume 7.5 fL (7.4-10.4); Platelet Count 351 thou/uL (130-400); RBC Distribution Width 12.7 % (11.5-14.5); Red Blood Cell (RBC) Count 2.82 mill/uL (4.20-5.40); White Blood Cell (WBC) Count 9.5 thou/uL (4.8-10.8)
[2021-05-19 04:41] LABS: Anion Gap 10 mmol/L (10-20); BUN (Urea Nitrogen) 30 mg/dL (9.8-20.1); Calc. Creatinine Clearance 21 mL/min (70-130); Calcium 9.1 mg/dL (7.8-10.44); Carbon Dioxide 34 mmol/L (23-31); Chloride 98 mmol/L (98-107); Glucose 84 mg/dL (83-110); Potassium 3.5 mmol/L (3.5-5.1); Sodium 138 mmol/L (136-145)
[2021-05-19] MEDS ORDERED: Dronedarone HCl 400 MG TAB PO SCH (08:00)
[2021-05-19] MEDS: Apixaban 2.5 MG TAB PO SCH ×2 (09:11→20:27)
[2021-05-19] MEDS: Furosemide 40 MG/4 ML VIAL SLOW IVP SCH ×2 (09:11→14:42)
[2021-05-19] MEDS: Levothyroxine Sodium 25 MCG TAB PO SCH (09:13)
[2021-05-19] MEDS: Dronedarone HCl 400 MG TAB PO SCH (17:26)
[2021-05-19] MEDS: Acetaminophen 325 MG TAB PO PRN ×2 (17:28→20:26)
[2021-05-19] MEDS: Rosuvastatin 10 MG TAB PO SCH (20:26)
[2021-05-19] MEDS: Melatonin 3 MG TAB PO SCH (20:26)
[2021-05-19] MEDS: Gabapentin 300 MG CAP PO SCH (20:27)
[2021-05-20] MEDS: Levothyroxine Sodium 25 MCG TAB PO SCH (05:56)
[2021-05-20] MEDS: Dronedarone HCl 400 MG TAB PO SCH (08:35)
[2021-05-20] MEDS: Furosemide 40 MG/4 ML VIAL SLOW IVP SCH (08:36)
[2021-05-20] MEDS: Apixaban 2.5 MG TAB PO SCH (08:36)
[2021-05-20] MEDS ORDERED: Carbamide Peroxide 6.5% Otic Drops 15 ml Bottle R EAR SCH (09:00)
[2021-05-20 15:26] VITALS: BP 133/62; TEMP 98.4
[2021-05-20] MEDS ORDERED: Potassium Chloride 20 MEQ TAB PO SCH (16:15)
[2021-05-21] MEDS ORDERED: Potassium Chloride 20 MEQ TAB PO SCH (08:00)
[2021-05-21] MEDS ORDERED: Furosemide 40 MG TAB PO SCH (09:00)
== END 2021-05-20 16:45 | DRG 291 ==
LOC: ERS 14:22 → 2NO 16:51
PROVIDERS: ADMIT Hospitalist; ATTEND Hospitalist
DX: I13.0 Hypertensive heart and chronic kidney disease with heart failure and stage 1 through stage 4 chronic kidney disease, or unspecified chronic kidney disease (principal); J96.01 Acute respiratory failure with hypoxia; I50.33 Acute on chronic diastolic (congestive) heart failure; N17.9 Acute kidney failure, unspecified; I69.954 Hemiplegia and hemiparesis following unspecified cerebrovascular disease affecting left non-dominant side; I48.11 Longstanding persistent atrial fibrillation; N18.4 Chronic kidney disease, stage 4 (severe); E78.5 Hyperlipidemia, unspecified; R19.7 Diarrhea, unspecified; E03.9 Hypothyroidism, unspecified; E78.00 Pure hypercholesterolemia, unspecified; I25.10 Atherosclerotic heart disease of native coronary artery without angina pectoris; I25.2 Old myocardial infarction; Z79.890 Hormone replacement therapy; Z79.01 Long term (current) use of anticoagulants; Z79.899 Other long term (current) drug therapy; Z95.1 Presence of aortocoronary bypass graft
CPT/HCPCS: 36415; 36416; 71045; 80048; 80053; 82805; 83605; 83735; 83880; 84484; 85025; 93005; 93306; 93798; 96374; 97139; J1940; U0003; U0005

== ENCOUNTER 2022-04-07 11:58 | Outpatient (CLI) | payer MEDICARE, BC | END 2022-04-07 11:59 | disposition home or self-care (01) | LOC: BICMAMMO 11:58 | PROVIDERS: ATTEND Nurse Practitioner Family | DX: Z12.31 Encounter for screening mammogram for malignant neoplasm of breast (principal); Z90.12 Acquired absence of left breast and nipple | CPT/HCPCS: 77063; 77067 ==